=== PATIENT | female | born 1945 | race Native Hawaiian/Other Pacific Islander ===

== ENCOUNTER 2017-04-18 06:47 | Outpatient (CLI) | payer OTHER | END 2017-04-18 10:30 | disposition home or self-care (01) | LOC: NM 06:47 | DX: I10 Essential (primary) hypertension (principal) | CPT/HCPCS: 93306 ==

== ENCOUNTER 2019-11-20 13:02 | Outpatient (CLI) | payer OTHER ==
[2019-11-20 13:29] LABS: POTASSIUM 3.4 mmol/L (3.6-5.2)
== END 2019-11-20 21:33 | disposition home or self-care (01) ==
LOC: LABW 13:02
PROVIDERS: Internal Medicine Cardiovascular Disease
DX: I25.10 Atherosclerotic heart disease of native coronary artery without angina pectoris (principal); R06.02 Shortness of breath
CPT/HCPCS: 36415; 80048; 83880